=== PATIENT | female | born 1935 | race Caucasian/White ===

== ENCOUNTER 2016-11-19 20:58 | Observation (INO) | payer MEDICARE, OTHER ==
[2016-11-19] MEDS ORDERED: Succinylcholine 200 MG/10 ML MDV IV ONE (21:06)
[2016-11-19] MEDS ORDERED: LORazepam 2 MG/ML MDV ONE (21:25)
--- NOTE | 2016-11-19 21:28 | EDM.PDOC ---
ED HPI GENERAL MEDICAL PROBLEM - General Stated Complaint: POSSIBLE STROKE Time Seen by Provider: 11/19/16 20:58 Source of Information: Reports: Patient, EMS, EMS Notes Reviewed, Family History Limitations: Reports: Other (unresponsive) - History of Present Illness INITIAL COMMENTS - FREE TEXT/NARRATIVE: 81 y.o.w.f.came to the ed after she was on the phone with her daughter. the patient suddenly stopped talking. Pt's daugther went to here mom's house and found her unresponsive. EMS was called. Pt was unresponsive, occ had "Sz like symptoms r extremity" unresponsive to verbal and pain stimuli. On arrival, pt had no gag, had agonal breathing typ. Pt was intubated by Anesthesia as per hospital bylaws. CT head showed large intra parenchymal bleed with midline shift. Neurosurgeon was called. Pt has poor prognosis 0-3% of survival. Family decided to keep pt here at [place]. 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: IV/IO - Related Data Allergies Allergy/AdvReac Type Severity Reaction Status Date / Time No Known Allergies Allergy Verified 11/19/16 22:18 Home Meds: Home Meds Calcium Carbonate/Vitamin D3 [Calcium 600 + Vit D3 Tablet] 2 tab PO BID [History] Apixaban [Eliquis] 2.5 mg PO DAILY 11/19/16 [History] Dicloxacillin 250 mg PO DAILY 11/19/16 [History] PARoxetine [Paxil] 20 mg PO DAILY 11/19/16 [History] atorvaSTATin [Lipitor] 40 mg PO DAILY 11/19/16 [History] Social & Family History - Tobacco Use Smoking Status *Q: Former Smoker Years of Tobacco use: 2 - Alcohol Use Days Per Week of Alcohol Use: 3 Number of Drinks Per Day: 1 Total Drinks Per Week: 3 - Recreational Drug Use Recreational Drug Use: No ED ROS GENERAL - Review of Systems Review Of Systems: Unable To Obtain Free Text/Narrative/Comment: GCS 8 ED EXAM, GENERAL - Physical Exam Exam: See Below Exam Limited By: Other (unresponsive) General Appearance: Other (unresponsive to verbal stimultie ) Eye Exam: Bilateral Eye: Normal Inspection Ears: Normal External Exam Ear Exam: Bilateral Ear: Auricle Normal Nose: Normal Inspection, Normal Mucosa Throat/Mouth: Other (no GAG, ) Head: Atraumatic, Normocephalic Neck: Normal Inspection, Supple, Non-Tender Respiratory/Chest: Respiratory Distress (no spontaneous breathing) Cardiovascular: Normal Peripheral Pulses, Irregularly Irregular Peripheral Pulses: 1+: Femoral (L), Femoral (R) GI/Abdominal: Normal Bowel Sounds, Soft (Female) Exam: Deferred Rectal (Female) Exam: Deferred Back Exam: Normal Inspection Extremities: Normal Inspection Neurological: Unresponsive Skin Exam: Warm, Dry, Intact, Pallor EKG INTERPRETATION EKG Date: 11/19/16 Time: 21:05 Rhythm: a-fib Rate (beats/min): 114 [place]: normal P-wave: absent QRS: normal ST-T: normal QT: prolonged Comparison: NA - no prior EKG Course - Vital Signs Text/Narrative:: 81 y.o.w.f.came to the ed after she was on the phone with her daughter. the patient suddenly stopped talking. Pt's daugther went to here mom's house and found her unresponsive. EMS was called. Pt was unresponsive, occ had "Sz like symptoms r extremity" unresponsive to verbal and pain stimuli. On arrival, pt had no gag, had agonal breathing typ. Pt is on Eliquis. Pt was intubated by Anesthesia as per [facility]. CT head showed large intra parenchymal bleed with midline shift. Neurosurgeon was called. Pt has poor prognosis 0-3% of survival. Procedure: Intubation with sedation, performed by Impression: a fib with RVR, Large intra parenchymal hematoma with midline shift Consultation: Dr. Andino, Neurosurgeon: Poor prognosis, survival rate 0-3 %. Bleeding not compatible with life. if family wished to fly her to [place] would be ok. He will not to an intervention. Family decided to keep pt here at [place]. At this point, family can not decide on extubating the patient. familymembers came together and decided to have the patient extubated. Pt was extrubated at 11.18pm 11/19/2016 Last Recorded V/S: Last Vital Signs Temp 37.6 C 11/20/16 08:00 Pulse 71 11/20/16 08:00 Resp 22 H 11/20/16 08:00 BP 150/59 H 11/20/16 08:00 Pulse Ox 90 L 11/20/16 08:00 - Orders/Labs/Meds Orders: Active Orders 24 hr Category Date Time Status CXR [Chest 1V Frontal] [CR] Stat Exams 11/19/16 21:12 Taken Cervical Spine wo Cont [CT] Stat Exams 11/19/16 21:13 Taken Head wo Cont [CT] Stat Exams 11/19/16 21:13 Taken Medication Orders Lorazepam (Ativan) 1 mg IVPUSH Q4H PRN PRN Reason: Anxiety Sodium Chloride (Saline Flush) 10 ml FLUSH ASDIRECTED PRN PRN Reason: Keep Vein Open Last Admin: 11/20/16 03:48 Dose: 10 ml Labs: Laboratory Tests 11/19/16 11/19/16 11/19/16 Range/Units 21:05 21:05 21:05 WBC 8.4 (4.5-12.0) X10-3/uL RBC 4.65 (3.23-5.20) x10(6)uL Hgb 13.8 (11.5-15.5) g/dL Hct 41.2 (30.0-51.3) % MCV 88.5 (80-96) fL MCH 29.6 (27.7-33.6) pg MCHC 33.5 (32.2-35.4) g/dL RDW 13.6 (11.5-15.5) % Plt Count 254 (125-369) X10(3)uL MPV 8.4 (7.4-10.4) fL Neut % (Auto) 66.6 (46-82) % Lymph % (Auto) 22.8 (13-37) % [place] % (Auto) 6.4 (4-12) % Eos % (Auto) 4 (1.0-5.0) % Baso % (Auto) 1 (0-2) % Neut # (Auto) 5.6 (1.6-8.3) # Lymph # (Auto) 1.9 (0.6-5.0) # [place] # (Auto) 0.5 (0.0-1.3) # Eos # (Auto) 0.3 (0.0-0.8) # Baso # (Auto) 0.1 (0.0-0.2) # PT 11.1 (8.7-11.1) INR 1.10 (0.89-1.13) Sodium 138 (135-145) mmol/L Potassium 3.4 L (3.5-5.3) mmol/L Chloride 105 (100-110) mmol/L Carbon Dioxide 22 L (23-29) mmol/L BUN 15 (8-23) mg/dL Creatinine 0.5 L (0.6-1.3) mg/dL Est Cr Clr Drug Dosing TNP Estimated GFR (MDRD) > 60 (>60) BUN/Creatinine Ratio 30.0 H (9-20) Glucose 218 H (80-116) mg/dL Calcium 9.3 (8.6-10.2) mg/dL Creatine Kinase 131 (60-160) IU/L Troponin I (0.02-0.06) NG/ML B-Natriuretic Peptide (0-100) pg/mL 11/19/16 11/19/16 Range/Units 21:05 21:05 WBC (4.5-12.0) X10-3/uL RBC (3.23-5.20) x10(6)uL Hgb (11.5-15.5) g/dL Hct (30.0-51.3) % MCV (80-96) fL MCH (27.7-33.6) pg MCHC (32.2-35.4) g/dL RDW (11.5-15.5) % Plt Count (125-369) X10(3)uL MPV (7.4-10.4) fL Neut % (Auto) (46-82) % Lymph % (Auto) (13-37) % [place] % (Auto) (4-12) % Eos % (Auto) (1.0-5.0) % Baso % (Auto) (0-2) % Neut # (Auto) (1.6-8.3) # Lymph # (Auto) (0.6-5.0) # [place] # (Auto) (0.0-1.3) # Eos # (Auto) (0.0-0.8) # Baso # (Auto) (0.0-0.2) # PT (8.7-11.1) INR (0.89-1.13) Sodium (135-145) mmol/L Potassium (3.5-5.3) mmol/L Chloride (100-110) mmol/L Carbon Dioxide (23-29) mmol/L BUN (8-23) mg/dL Creatinine (0.6-1.3) mg/dL Est Cr Clr Drug Dosing Estimated GFR (MDRD) (>60) BUN/Creatinine Ratio (9-20) Glucose (80-116) mg/dL Calcium (8.6-10.2) mg/dL Creatine Kinase (60-160) IU/L Troponin I 0.05 (0.02-0.06) NG/ML B-Natriuretic Peptide 145 H (0-100) pg/mL Meds: Medications Generic Name Dose Route Start Last Admin Trade Name Freq PRN Reason Stop Dose Admin Lorazepam 1 mg 11/19/16 23:23 Ativan IVPUSH Q4H PRN Anxiety Sodium Chloride 10 ml 11/20/16 03:26 11/20/16 03:48 Saline Flush FLUSH 10 ml ASDIRECTED PRN Administration Keep Vein Open Discontinued Medications Generic Name Dose Route Start Last Admin Trade Name Freq PRN Reason Stop Dose Admin Sodium Chloride 500 mls @ 999 mls/hr 11/19/16 21:14 11/20/16 00:36 Normal Saline IV 11/19/16 21:44 Not Given .BOLUS ONE Sodium Chloride 1,000 mls @ 999 mls/hr 11/20/16 00:45 Normal Saline IV ASDIRECTED SHAYY Lorazepam Confirm 11/19/16 21:25 11/20/16 00:24 Ativan Administered 11/19/16 21:26 Not Given Dose 2 mg .ROUTE .STK-MED ONE Lorazepam 1 mg 11/19/16 22:57 11/19/16 23:04 Ativan IVPUSH 11/19/16 22:58 1 mg ONETIME ONE Administration Morphine Sulfate 4 mg 11/20/16 03:24 11/20/16 03:41 Morphine IVPUSH 11/20/16 03:25 4 mg ONETIME ONE Administration Departure - Departure Time of Disposition: 23:01 Disposition: Refer to Observation Preliminary Cause of *Q: Respiratory failure Condition: critical Clinical Impression: Intraparenchymal hematoma of brain Qualifiers: Encounter type: initial encounter Laterality: right Loss of consciousness presence/duration: with LOC and due to brain injury before regaining consciousness Qualified Code(s): S06.347A - Traumatic hemorrhage of right cerebrum with loss of consciousness of any duration with due to brain injury prior to regaining consciousness, initial encounter - My Orders Last 24 Hours: My Active Orders 11/19/16 21:12 CXR [Chest 1V Frontal] [CR] Stat 11/19/16 21:13 Cervical Spine wo Cont [CT] Stat Head wo Cont [CT] Stat - Assessment/Plan Last 24 Hours: My Active Orders 11/19/16 21:12 CXR [Chest 1V Frontal] [CR] Stat 11/19/16 21:13 Cervical Spine wo Cont [CT] Stat Head wo Cont [CT] Stat
[2016-11-19] MEDS ORDERED: LORazepam 2 MG/ML MDV IVPUSH ONE (22:57)
[2016-11-19] MEDS ORDERED: LORazepam 2 MG/ML MDV IVPUSH PRN (23:23)
[2016-11-20] MEDS: Sodium Chloride 0.9% 500 ML IV ONE ×2 (00:24→00:36)
[2016-11-20] MEDS ORDERED: Sodium Chloride 0.9% 1,000 ML IV SCH (00:45)
[2016-11-20] MEDS ORDERED: Morphine 4 MG/ML Syringe IVPUSH ONE (03:24)
[2016-11-20] MEDS: Sodium Chloride 0.9% 10 ML Syringe FLUSH PRN ×2 (03:48→17:37)
--- NOTE | 2016-11-20 08:44 | PCM.HP ---
[id number] Diagnosis/Problem Admission Diagnosis/Problem Respiratory arrest Source of Information: Family, Old Records History Limitations: Reports: Altered Mental Status - History of Present Illness Initial Comments - Free Text/Narative: 80-year-old female admitted last night after a stroke. She was in the usual state of health complain of a headache and then collapsed. Is about 7 PM. She was noted to be shaking on the right hand. She became unresponsive from then on. A CT of the head in the emergency room a few minutes later revealed pH in to parenchymal hemorrhage. She has a history of A. fib and has been taking eiquis. Neurology was consulted and felt that the chance of recovery was minimal. She is admitted for supportive therapy. - Related Data Allergies/Adverse Reactions: Allergies Allergy/AdvReac Type Severity Reaction Status Date / Time No Known Allergies Allergy Verified 11/19/16 22:18 Home Medications: Home Meds Calcium Carbonate/Vitamin D3 [Calcium 600 + Vit D3 Tablet] 2 tab PO BID [History] Apixaban [Eliquis] 2.5 mg PO DAILY 11/19/16 [History] Dicloxacillin 250 mg PO DAILY 11/19/16 [History] PARoxetine [Paxil] 20 mg PO DAILY 11/19/16 [History] atorvaSTATin [Lipitor] 40 mg PO DAILY 11/19/16 [History] Past Medical History HEENT History: Reports: None Cardiovascular History: Reports: Afib Respiratory History: Reports: None Gastrointestinal History: Reports: None Genitourinary History: Reports: None 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: Neurological History: Reports: CVA Psychiatric History: Reports: Anxiety Endocrine/Metabolic History: Reports: None Hematologic History: Reports: None Immunologic History: Reports: None Oncologic (Cancer) History: Reports: None Dermatologic History: Reports: None - Infectious Disease History Infectious Disease History: Reports: None - Past Surgical History Head Surgeries/Procedures: Reports: None HEENT Surgical History: Reports: None Cardiovascular Surgical History: Reports: None Respiratory Surgical History: Reports: None GI Surgical History: Reports: None Female Surgical History: Reports: None Neurological Surgical History: Reports: Other (See Below) Other Neurological Surgeries/Procedures: back surgery Musculoskeletal Surgical History: Reports: Knee Replacement, Other (See Below) Other Musculoskeletal Surgeries/Procedures:: back surgery Dermatological Surgical History: Reports: None Social & Family History - Family History Family Medical History: Noncontributory - Tobacco Use Smoking Status *Q: Never Smoker Years of Tobacco use: 2 Second Hand Smoke Exposure: No - Caffeine Use Caffeine Use: Reports: Coffee, Soda - Alcohol Use Days Per Week of Alcohol Use: 1 Number of Drinks Per Day: 1 Total Drinks Per Week: 1 Date of Last Drink: 11/18/16 Time of Last Drink: 18:00 - Recreational Drug Use Recreational Drug Use: No H&P Review of Systems - Review of Systems: Review Of Systems: ROS reveals no pertinent complaints other than HPI. Exam - Exam Exam: See Below - Vital Signs Vital Signs: Last Vital Signs Temp 96 F 11/19/16 23:40 Pulse 130 H 11/19/16 23:40 Resp 24 H 11/19/16 23:40 BP 164/109 H 11/19/16 23:40 Pulse Ox 90 L 11/19/16 23:40 Weight: 68.039 kg - Exam Quality Assessment: No: Supplemental Oxygen General: Obtunded HEENT: PERRLA Neck: Supple Lungs: Clear to Auscultation Cardiovascular: Irregular Rhythm Abdomen: Normal Bowel Sounds Extremities: Normal Inspection Skin: Warm Neurological: No: Cranial Nerves Intact, Reflexes Equal Bilateral, Strength Equal Bilateral Neuro Extensive - Mental Status: No: Alert, Withdraws to Pain - Patient Data Result Diagrams: 11/19/16 21:05 11/19/16 21:05 EKG INTERPRETATION Rhythm: a-fib *Q Meaningful Use (ADM) - VTE *Q VTE Criteria *Q: - Stroke *Q Stroke Criteria *Q: - AMI *Q AMI Criteria *Q: - Problem List (1) Intracerebral bleed SNOMED Code(s): 070166145 ICD Code: I61.9 - NONTRAUMATIC INTRACEREBRAL HEMORRHAGE, UNSPECIFIED Status : Acute Current Visit: Yes Qualifiers: Intracerebral hemorrhage etiology: nontraumatic Laterality: right (2) Stroke SNOMED Code(s): 918770679 ICD Code: I63.9 - CEREBRAL INFARCTION, UNSPECIFIED Status: Acute Current Visit: Yes (3) Afib SNOMED Code(s): 17366081 ICD Code: I48.91 - UNSPECIFIED ATRIAL FIBRILLATION Status: Acute Current Visit: Yes (4) Palliative care patient SNOMED Code(s): 958151671 ICD Code: Z51.5 - ENCOUNTER FOR PALLIATIVE CARE Status: Acute Current Visit: Yes Problem List Initiated/Reviewed/Updated: Yes Orders Last 24hrs: Active Orders 24 hr Category Date Time Status Consult to Hospice [CONS] Routine Cons 11/20/16 08:40 Ordered Consult to [facility] [CONS] Routine Cons 11/20/16 08:40 Ordered LORazepam [Ativan] Med 11/19/16 23:23 Active 1 mg IVPUSH Q4H PRN Sodium Chloride 0.9% [Saline Flush] Med 11/20/16 03:26 Active 10 ml FLUSH ASDIRECTED PRN EKG 12 Lead [EK] Stat Ther 11/19/16 21:00 Ordered Medication Orders Lorazepam (Ativan) 1 mg IVPUSH Q4H PRN PRN Reason: Anxiety Sodium Chloride (Saline Flush) 10 ml FLUSH ASDIRECTED PRN PRN Reason: Keep Vein Open Last Admin: 11/20/16 03:48 Dose: 10 ml Assessment/Plan Comment:: I had a long discussion with the family. Patient is unresponsive. Date agreed to a hospice consultation for end-of-life care.
--- NOTE | 2016-11-20 11:49 | CR ---
INDICATION: Tube placement. CHEST: An AP 40-inch view of the chest was obtained, revealing endotracheal tube to lie in adequate position 4 cm above the sharon. Very poor inspiration is noted. The possibility of CHF cannot be excluded. The heart is enlarged in appearance, emphasized by AP positioning and poor inspiration. The aorta is tortuous and calcified. Overlying EKG leads are noted. IMPRESSION: 1. Satisfactory position endotracheal tube. 2. Cannot exclude CHF and interstitial lung edema. MTDD
[2016-11-20] MEDS: Acetaminophen 650 MG Supp RECTAL PRN (16:58)
[2016-11-20] MEDS: Morphine 2 MG/ML Syringe IVPUSH PRN (17:36)
[2016-11-20 22:12] VITALS: BP 151/79
[2016-11-21] MEDS: Acetaminophen 650 MG Supp RECTAL PRN (00:35)
[2016-11-21] MEDS: Morphine 2 MG/ML Syringe IVPUSH PRN ×2 (02:37→05:15)
[2016-11-21] MEDS: Sodium Chloride 0.9% 10 ML Syringe FLUSH PRN ×2 (02:44→05:21)
--- NOTE | 2016-11-22 01:21 | DISCH ---
DISCHARGE DATE: 11/21/2016 DATE OF : 11/21/2016. REASON FOR ADMISSION: Intracerebral hemorrhage. REASON FOR : Massive intracerebral hemorrhage. DIAGNOSES: Atrial fibrillation, hypertension, and hyperlipidemia. PROCEDURES: None. BRIEF HISTORY: An 81-year-old female, admitted after a collapse and was found unresponsive and CT revealed massive hemorrhage. After Neurology consultation, it was determined that she will be put on comfort cares. Hospice was consulted on the . The family was thinking about it. The patient today at 0530 hours in the morning. November God rest her soul in eternal peace. /[id number] ROME/MODCaleb
== END 2016-11-21 05:35 | disposition expired ==
LOC: FB.ED 20:58 → FB.MS 22:38
PROVIDERS: ADMIT Emergency Medicine; ATTEND Family Medicine
DX: I61.6 Nontraumatic intracerebral hemorrhage, multiple localized (principal); R40.2432 Glasgow coma scale score 3-8, at arrival to emergency department; Z51.5 Encounter for palliative care; I48.91 Unspecified atrial fibrillation; Z79.01 Long term (current) use of anticoagulants; Z79.899 Other long term (current) drug therapy; F41.9 Anxiety disorder, unspecified; Z86.73 Personal history of transient ischemic attack (TIA), and cerebral infarction without residual deficits; R06.02 Shortness of breath
CPT/HCPCS: 31500; 36415; 51702; 70450; 71010; 72125; 80048; 82550; 83880; 84484; 85025; 85610; 93005; 96361; 96374; 96375; 96376; 99217; 99219; 99285; 99291; 99292; A9270; G0378; J2060; J2270; J7050; J0330